=== PATIENT | male | born 1940 | race Two or more races ===

== ENCOUNTER 2018-04-05 10:10 | Outpatient (CLI) | payer OTHER | END 2018-04-05 10:34 | disposition home or self-care (01) | LOC: NUCLEAR 10:10 | DX: I87.2 Venous insufficiency (chronic) (peripheral) (principal) ==

== ENCOUNTER → 2018-10-11 | Emergency (ER) | payer OTHER ==
[~2018-10-11] VITALS: Ht 177.8 cm; Wt 93.0 kg
[~2018-10-11] MED LIST: ASA81 MG; TENORMIN50 M1
== END | disposition home or self-care (01) ==
LOC: ER 13:42 → CPU-OBS 13:59
DX: I48.0 Paroxysmal atrial fibrillation (principal)

== ENCOUNTER 2018-10-18 11:45 | Outpatient (CLI) | payer OTHER | END 2018-10-18 12:00 | disposition home or self-care (01) | LOC: NUCLEAR 11:45 | DX: I20.9 Angina pectoris, unspecified (principal) | CPT/HCPCS: 78452; 93017; A9500; J0153 ==